=== PATIENT | female | born 1965 | race Caucasian/White ===

== ENCOUNTER 2018-10-05 16:21 | Outpatient (CLI) | payer OTHER ==
--- NOTE | 2018-10-06 07:59 | Ultrasound Report ---
Reason: POSTMENOPAUSAL BLEEDING Procedure Date: 10/05/2018 Accession Number: [id number] / [id number] Procedure: US - Pelvic w/Transvaginal CPT Code: FULL RESULT: EXAM: PELVIC ULTRASOUND EXAM DATE: 10/05/2018 05:30 PM. CLINICAL HISTORY: Postmenopausal bleeding for one day. Dyspareunia for 2 years. COMPARISON: None. TECHNIQUE: Realtime transabdominal pelvic scan performed to identify the uterus and adnexa and as an overview of other pelvic structures, followed by transvaginal scan to provide greater detail of the uterus and adnexa, with static image documentation. FINDINGS: Uterus: 6.5 x 3.2 x 5.8 cm, volume 63 cc. Anteverted position. Normal overall size and echotexture. Masses: 1. Anterior intramural fibroid 1.0 x 0.6 x 1.0 cm. 2. Left anterior intramural fibroid 0.6 x 0.5 x 0.7 cm. 3. Tiny fundal simple cyst measures 0.3 x 0.4 x 0.4 cm. Endometrium: 3 mm. Normal. Cervix: Unremarkable. Right Ovary: 1.7 x 1.5 x 1.5 cm, volume 2.0 cc. Normal echotexture and blood flow. Left Ovary: 2.4 x 1.6 x 2.5 cm, volume 5.0 cc. Normal echotexture and blood flow. Dominant follicle measures 0.6 cm. Free Fluid: None. Other: None. IMPRESSION: 1. Normal endometrium. No masses or thickening. 2. 2 small intramural fibroids measuring 0.7 and 1.0 cm. 3. Incidental fundal simple cyst. RADIA
== END 2018-10-05 16:22 | disposition home or self-care (01) ==
LOC: DI 16:21
PROVIDERS: ATTEND Obstetrics & Gynecology
DX: D25.1 Intramural leiomyoma of uterus (principal); N85.8 Other specified noninflammatory disorders of uterus
CPT/HCPCS: 76830; 76856

== ENCOUNTER 2018-10-06 11:58 | Day surgery (SDC) | payer OTHER ==
[2018-10-06] MEDS ORDERED: LIDOCAINE-MPF 2% 5 ML VIAL IM ONE (11:59)
[2018-10-06] MEDS ORDERED: fentaNYL 100 MCG/2 ML VIAL IVP ONE (11:59)
[2018-10-06] MEDS ORDERED: ROCURONIUM 50 MG/5 ML VIAL IVP ONE (11:59)
[2018-10-06] MEDS ORDERED: LABETALOL 5 MG/1 ML 20 ML MDV IV ONE (11:59)
[2018-10-06] MEDS ORDERED: PROPOFOL 200 MG/20 ML VIAL IVP ONE (11:59)
[2018-10-06] MEDS ORDERED: MIDAZOLAM 2 MG/2 ML VIAL IVP ONE (11:59)
[2018-10-06] MEDS ORDERED: DEXAMETHASONE 4 MG/ML VIAL IVP ONE (11:59)
[2018-10-06] MEDS ORDERED: LACTATED RINGERS 1,000 ML IV ONE ×2 (12:04→16:15)
[2018-10-06] MEDS ORDERED: CEFAZOLIN SODIUM IN 0.9 % NACL 2 GM/100 ML BAG IV ONE (12:23)
--- NOTE | 2018-10-06 13:35 | ANESTHESIA ---
Pre-Anesthesia VS, & Labs - Diagnosis symptomatic hemorrhoids and anal fissure - Procedure PPH and fissalectomy. Vital Signs: Temp Pulse Resp BP Pulse Ox 36.2 C L 61 12 166/93 H 95 10/06/18 12:04 10/06/18 12:04 10/06/18 12:04 10/06/18 12:04 10/06/18 12:04 Height 5 ft 5 in Weight (kg) 93.4 kg - NPO >8 hours - Is Patient ?: No Home Medications and Allergies Home Medications: Ambulatory Orders Calcium Citrate/Vitamin D3 [Calcium Citrate +Vit D3 Tablet] 4 each PO DAILY 10/02/18 Escitalopram Oxalate [Lexapro] 20 mg PO DAILY 10/02/18 Multivitamin [Daily Multiple Vitamin] 4 each PO DAILY 10/02/18 Ferrous Fumarate 324 mg PO DAILY 10/06/18 Calcium Citrate/Vitamin D3 [Calcium Citrate +Vit D3 Tablet] 4 each PO DAILY 10/02/18 Escitalopram Oxalate [Lexapro] 20 mg PO DAILY 10/02/18 Multivitamin [Daily Multiple Vitamin] 4 each PO DAILY 10/02/18 Ferrous Fumarate 324 mg PO DAILY 10/06/18 Allergies/Adverse Reactions: Allergies Allergy/AdvReac Type Severity Reaction Status Date / Time lanolin Allergy Rash Verified 10/02/18 13:32 Anes History & Medical History - Anesthetic History Anesthesia Complications: reports: Post-Operative Nausea/Vomiting (Reports severe PONV. She had TIVA with last procedure and did not vomit.) - Medical History Cardiovascular: reports: None Pulmonary: reports: Pneumonia (4 years ago), Other (frequent bronchitis during winter months.) Gastrointestinal: reports: Chronic diarrhea, Hemorrhoids, Other (Gastric bypass/sleeve) Urinary: reports: None Neuro: reports: None Musculoskeletal: reports: Other (S/P cervical spine surgery) Endocrine/Autoimmune: reports: Type 2 diabetes (resolved after gastric bypass) Blood Disorders: reports: None Skin: reports: None Smoking Status: Never smoker Psychosocial: reports: Depression, Anxiety - Surgical History General: Gastric surgery Eyes Ears Nose Throat (EENT): Other Gynecologic: section Orthopedic: Spine surgery, Other Exam General: Alert, Oriented x3, Cooperative, No acute distress Dental: WNL Mouth Openin Fingerbreadth Neck Mobility: Normal Mallampati classification: I Thyromental Distance: greater than 6 cm Respiratory: Lungs clear, Normal breath sounds, No respiratory distress, No accessory muscle use Cardiovascular: Regular rate, Normal S1, Normal S2, No murmurs Mental/Cognitive Status: Alert/Oriented X3, Normal for patient Plan Anesthesia Type: General, Total IV Consent for Procedure(s) Verified and Reviewed: Yes Code Status: Attempt Resuscitation ASA classification: 2-Mild systemic disease Is this case an emergency?: No
[2018-10-06] MEDS ORDERED: LIDOCAINE JELLY 2% 5 ML TUBE TOP ONE ×2 (15:24→16:28)
[2018-10-06] MEDS ORDERED: BUPIVACAINE 0.5%-EPI 1:200000 PF 30 ML VIAL ONE (15:25)
[2018-10-06] MEDS ORDERED: BUPIVACAINE 0.5%-EPI 1:200000 PF 30 ML VIAL SUBQ ONE ×2 (16:22)
[2018-10-06] MEDS ORDERED: HYDROmorphone 0.5 MG/0.5 ML SYRINGE IVP PRN (16:57)
[2018-10-06] MEDS ORDERED: HYDROcod/ACETAM 5/325 MG TABLET PO PRN (16:57)
[2018-10-06] MEDS ORDERED: ONDANSETRON 4 MG/2 ML VIAL IVP PRN (16:57)
[2018-10-06] MEDS ORDERED: SUGAMMADEX 200 MG/2 ML VIAL IVP ONE (16:59)
--- NOTE | 2018-10-06 17:05 | OPERATIVE REPORT ---
Operative Report - General Procedure Date: 10/06/18 Planned Procedure: Procedure for prolapsing hemorrhoids (stapled hemorrhoidectomy) and anal fissurectomy, possible excision of external hemorrhoids Pre-Op Diagnosis: Symptomatic hemorrhoids and anal fissure Procedure Performed: Procedure for prolapsing hemorrhoids (stapled hemorrhoidectomy) Post Op Diagnosis: Some anal stenosis along with internal hemorrhoids with a healing anal fiss - Procedure Note Primary Surgeon: Dwight Chase MD Anesthesia Provider: Isaias Alegria CRNA Anesthesia Technique: General ET tube, Local (30 mL of half percent Marcaine with epinephrine) IV Fluids (mL): 600 Estimated Blood Loss (mL): 10 Drain/Tube Type: Other (None.) Complications: None. - Other Other Information/Narrative: OPERATIVE DESCRIPTION/REPORT: After verbal and written informed consent was obtained detailing the risks of infection, bleeding requiring transfusion with its risks, nerve injury, and , and after I met with the patient confirming the surgery and the site of the surgery, the patient was brought to the operative suite and placed supine on the operating table. Great care was taken to avoid pressure points to prevent p ressure necrosis or nerve injury. Monitoring devices were applied along with TEDs and pneumatic compressive stockings (to prevent DVT). The patient received preoperative antibiotics for surgical prophylaxis. Isaias Alegria CRNA sedated and anesthetized the patient for the entire procedure. The patient was then placed prone in the shamar-knife position, again taking care to ensure that we prevented pressure point. The patients buttocks were taped apart and the patient was prepped and draped in the usual sterile manner. A "time in" then confirmed that the patient was identified with 3 identifiers (name, date and medical record number), the history and physical was in the chart, the signed consent confirming the procedure was in the chart, the patient was in the correct position, the aforementioned prophylactic measures were in place or given, we had the correct personnel and equipment to complete the procedure and that anesthesia, surgery and nursing were given an opportunity to express any concerns. With the agreement of everyone in the room, we proceeded with the operation. The PPH kit was obtained and opened. 0.5% Marcaine with epinephrine was used to inject the patient perianally prior to the digital rectal examination and prior to the operation. Digital rectal examination was done with the aid of water- soluble lubricant and some anal stenosis was noted. This was gently dilated up to 3 fingers to allow placement for the anal retractor and dilator. Examination revealed that the anal fissure had been healing and is obviously stated above the anal stenosis will certainly playing a role in the patient's symptoms. The anal retractor and dilator were placed in the patients anus after thoroughly lubricating them with a water-soluble lubricant. The retractor was held in place to the patients buttocks with 2 2-0 Nylon sutures. The dilator was removed and the tapered appliance was inserted. 4 cm was clearly marked on the appliance measuring from the dentate line. The dentate line was clearly protected behind the retractor. A 2-0 Prolene was then used to sew a purse- string at 4 cm from the dentate line using the tapered appliance as a guide and retractor. The purse string was completed through over 360 degrees to ensure that there were no skipped areas. The purse-string was tested by pulling on the two ends of the suture and feeling the purse-string contract against my finger. It was noted to be complete without any missed areas. The anvil was inserted past the purse-string feeling the ``pop as it passed it. The purse-string was then tied tight around the post and the ends of the suture brought up and tied through the orange hole in the anvil. The anvil was then inserted into the stapling device and the stapler was then screwed down tight. Digital vaginal examination revealed that the staple line did not include the vaginal mucosa. Four minutes were allowed to elapse to allow for emptying of the tissues of blood. The stapler was fired and removed from the anus. A complete ``donut was retrieved from around the post of the stapler, and this was sent in to pathology. Digital examination confirmed a circumferential stapling. Visual inspection confirmed some oozing at the 1 o'clock position that was controlled with packing and injection of additional 0.5% marcaine with epinephrine. A total of 30 mL of 0.5% Marcaine with epinephrine was used. Ultimately visual examination revealed hemostasis. There were some small skin tags externally that the patient stated were getting much smaller and did not wish to have taken off if I did not feel that they needed to. In this instance I opted not to remove them and as that would have caused her much more discomfort than the PPH stapling. A roll of gelfoam and lidocaine jelly was fashioned and inserted into the patients anus. The perianal area was injected with 30 mL of half percent Marcaine with epinephrine circumferentially. At this point a time out was pe rformed that confirmed that all the counts were correct, the procedure that was performed, the blood loss, the IV fluids administered, and the patients condition. Having tolerated the procedure well, the patient was subsequently taken to short stay in good and stable condition. CommScope disclaimer: This document was created in part using voice recognition technology. Because of the inherent limitations of the system ([employer]'s CommScope Dictate user manual states that the licensee understands that speech recognition is a statistical process and that recognition errors are inherent in the process), occasional same sounding word substitutions and grammatical errors do occur and persist despite proofreading. Please read this document for context.
[2018-10-06] MEDS ORDERED: ACETAMINOPHEN 1,000 MG/100 ML 100 ML IV ONE (17:19)
[2018-10-06 19:35] VITALS: BP 153/80
== END 2018-10-06 19:30 | disposition home or self-care (01) ==
LOC: SDS 11:58 → MS2 17:49 → SDS 19:30
PROVIDERS: ATTEND Surgery
PROC: 06BY0ZC Excision of Hemorrhoidal Plexus, Open Approach (ICD-10-PCS; principal; 2018-10-06 11:30)
DX: K64.8 Other hemorrhoids (principal); K60.2 Anal fissure, unspecified; K62.4 Stenosis of anus and rectum; K64.4 Residual hemorrhoidal skin tags; R00.0 Tachycardia, unspecified; E66.9 Obesity, unspecified; Z68.33 Body mass index [BMI] 33.0-33.9, adult; Z86.39 Personal history of other endocrine, nutritional and metabolic disease; Z98.84 Bariatric surgery status

== ENCOUNTER 2018-10-06 23:46 | Day surgery (SDC) | payer OTHER ==
--- NOTE | 2018-10-06 23:58 | ED Physician Documentation ---
History of Present Illness - Stated complaint Stated Complaint: POST SURGICAL BLEEDING - Additonal information Additional information: This is a 52-year-old female who underwent a hemorrhoidectomy today with Dr. Campbell, who presents due to continued bleeding from the site of her resection. She has been in touch with her surgeon, who asked for her to come back in so that he could examine the site and suture the area that is bleeding. She denies any pain, states that she is still numb from the previous analgesia. She denies any lightheadedness, weakness, chest pain. Review of Systems Constitutional: denies: Fever Cardiac: denies: Chest pain / pressure GI: denies: Abdominal Pain Skin: reports: Other (+ for bleeding from surgery site) PD PAST MEDICAL HISTORY - Past Medical History Cardiovascular: None Respiratory: Pneumonia (4 years ago), Other (frequent bronchitis during winter months.) Neuro: None Endocrine/Autoimmune: Type 2 diabetes (resolved after gastric bypass) GI: Chronic diarrhea, Hemorrhoids, Other (Gastric bypass/sleeve) : None HEENT: None Psych: Depression, Anxiety Musculoskeletal: Other (S/P cervical spine surgery) Derm: None - Past Surgical History General: Gastric surgery Ortho: Spine surgery, Other /[employer]: section HEENT: Other - Present Medications Home Medications: Ambulatory Orders Medication Instructions Recorded Confirmed Calcium Citrate/Vitamin D3 4 each PO DAILY 10/02/18 10/06/18 [Calcium Citrate +Vit D3 Tablet] Escitalopram Oxalate [Lexapro] 20 mg PO DAILY 10/02/18 10/06/18 Multivitamin [Daily Multiple 4 each PO DAILY 10/02/18 10/06/18 Vitamin] Docusate Sodium 250Mg Capsule 250 mg PO DAILY #10 capsule 10/06/18 [Colace 250Mg Capsule] HYDROcod/ACETAM 5/325 [[place] 5/325] 1 each PO Q4H #20 tablet 10/06/18 RX: Ferrous Fumarate 324 mg PO DAILY 10/06/18 10/06/18 - Allergies Allergies/Adverse Reactions: Allergies Allergy/AdvReac Type Severity Reaction Status Date / Time lanolin Allergy Rash Verified 10/02/18 13:32 - Social History Smoking Status: Never smoker PD ED PE NORMAL - Vitals Vital signs reviewed: Yes - General General: Alert and oriented X 3, No acute distress - HEENT HEENT: Atraumatic - Cardiac Cardiac: RRR, Other (2/6 systolic ejection murmur - I shared this with patient and told her to follow up with her PCP for recheck and possible echo) - Respiratory Respiratory: Clear bilaterally - Abdomen Abdomen: Soft, Non tender, Non distended - Derm Derm: Warm and dry - Neuro Neuro: Alert and oriented X 3 - Psych Psych: Normal mood, Normal affect Results - Vitals Vitals: Vital Signs - 24 hr 10/06/18 10/06/18 10/07/18 23:50 23:58 00:09 Temperature 36.3 C L 36.3 C L 36.3 C L Heart Rate 72 72 72 Heart Rate [ Brachial] Respiratory 18 18 18 Rate Blood Pressure 156/78 H 156/78 H 156/78 H Blood Pressure [Left Brachial artery] O2 Saturation 96 96 96 10/07/18 10/07/18 10/07/18 01:38 01:40 01:45 Temperature 36.8 C Heart Rate 87 87 85 Heart Rate [ Brachial] Respiratory 15 15 15 Rate Blood Pressure 134/79 H 127/69 117/64 Blood Pressure [Left Brachial artery] O2 Saturation 100 99 99 10/07/18 10/07/18 10/07/18 01:50 02:00 02:10 Temperature 36.7 C Heart Rate 90 92 77 Heart Rate [ Brachial] Respiratory 16 15 16 Rate Blood Pressure 114/69 149/88 H 137/77 H Blood Pressure [Left Brachial artery] O2 Saturation 95 95 100 10/07/18 10/07/18 10/07/18 02:30 03:03 03:29 Temperature 36.8 C 37 C 36.9 C Heart Rate 76 Heart Rate [ 79 78 Brachial] Respiratory 16 16 16 Rate Blood Pressure 139/72 H Blood Pressure 151/73 H 152/86 H [Left Brachial artery] O2 Saturation 95 94 93 10/07/18 10/07/18 10/07/18 04:00 04:30 04:35 Temperature 36.9 C Heart Rate 73 Heart Rate [ Brachial] Respiratory 16 Rate Blood Pressure 131/69 H Blood Pressure [Left Brachial artery] O2 Saturation 93 90 L 98 10/07/18 10/07/18 10/07/18 05:00 08:02 10:47 Temperature 37.1 C 36.5 C 36.6 C Heart Rate 86 72 71 Heart Rate [ Brachial] Respiratory 16 16 16 Rate Blood Pressure 133/84 H 140/73 H 143/78 H Blood Pressure [Left Brachial artery] O2 Saturation 96 99 94 10/07/18 12:46 Temperature 37 C Heart Rate 65 Heart Rate [ Brachial] Respiratory 16 Rate Blood Pressure 135/66 H Blood Pressure [Left Brachial artery] O2 Saturation 96 Oxygen O2 Source Room air - Labs Labs: Laboratory Tests 10/07/18 10/07/18 00:06 05:50 WBC 11.5 H 10.2 RBC 4.05 L 3.85 L Hgb 11.8 L 11.1 L Hct 36.6 L 34.9 L MCV 90.4 90.6 MCH 29.1 28.8 MCHC 32.2 31.8 L RDW 12.4 12.2 Plt Count 294 253 MPV 11.4 H 10.5 Neut # (Auto) 10.4 H 9.2 H Lymph # (Auto) 0.6 L 0.7 L [place] # (Auto) 0.4 0.2 Eos # (Auto) 0.0 0.0 Baso # (Auto) 0.0 0.0 Absolute Nucleated RBC 0.00 0.00 Nucleated RBC % 0.0 0.0 PD MEDICAL DECISION MAKING - ED course Complexity details: considered differential (Surgical complication, post- surgical bleeding, anemia) ED course: Patient presents with oozing from a hemmorhoidectomy site. She is well appearing with unremarkable vital signs. IV access obtained. She was met in ED by Dr. Chase, who arranged for transfer to the OR for evaluation of the wound and likely suture placement. She has a mild anemia on her CBC. Patient was well appearing at the time of transfer to the OR Departure - Departure Disposition: ED Transfer to [facility] Clinical Impression: Postoperative bleeding from incision Condition: Stable Discharge Date/Time: 10/07/18 00:40
--- NOTE | 2018-10-07 00:06 | SURGERY HX AND PHYSICAL(T) ---
Surgical History & Physical - Chief Complaint/HPI Chief Complaint: Blood per rectum following a PPH hemorrhoidectomy History of Present Illness: The patient is a very pleasant 52-year-old female well-known to me as I performed a PPH hemorrhoidectomy on her approximately 8 hours ago. At the time of the operation she had some oozing from the staple line which was controlled with the application of Marcaine with epinephrine and a Gelfoam. She was discharged home and was doing well until she passed a cereal bowl sized clot. She is not dizzy. She is not lightheaded. - PMH/PSH/Social Hx Does the pt have a hx of MRSA?: No Neurological History: None Eyes, Ears, Nose, Throat: None Cardiovascular: None Respiratory: Pneumonia (4 years ago), Other (frequent bronchitis during winter months.) Skin: None Endocrine/Autoimmune: Type 2 diabetes (resolved after gastric bypass) Gastrointestinal: Chronic diarrhea, Hemorrhoids, Other (Gastric bypass/sleeve) Urinary: None Musculoskeletal: Other (S/P cervical spine surgery) Blood Disorders: None Psychiatric: Depression, Anxiety General: Gastric surgery Orthopedic: Spine surgery, Other Eyes Ears Nose Throat (EENT): Other Smoking Status: Never smoker - Home Meds and Allergies Home Medications: Calcium Citrate/Vitamin D3 [Calcium Citrate +Vit D3 Tablet] 4 each PO DAILY 10/02/18 Escitalopram Oxalate [Lexapro] 20 mg PO DAILY 10/02/18 Multivitamin [Daily Multiple Vitamin] 4 each PO DAILY 10/02/18 Ferrous Fumarate 324 mg PO DAILY 10/06/18 Allergies/Adverse Reactions: Allergies Allergy/AdvReac Type Severity Reaction Status Date / Time lanolin Allergy Rash Verified 10/02/18 13:32 - Review of Systems Constitutional: No: Fatigue HEENT: No: Headaches Skin: No: Cyanosis, Jaundice Cardiac: No: AFIB, CAD, CHF Respiratory: No: Shortness of breath Gastrointestinal: Hematochechezia. No: Nausea, Vomiting Gentinourinary: No: Dysuria Neurological: No: Dizziness, Headache Musculoskeletal: No: Muscle pain, Back pain - Vital Signs Heart Rate: 72 Blood Pressure: 156/78 Temperature: 36.3 C Respiratory Rate: 18 O2 Saturation: 96 Weight (kg): 92.533 kg Height: 1.65 m - Physical Exam General Appearance: positive: No acute distress Eyes Bilatera: positive: No lid inflammation, Conjunctivae nml, No scleral icterus ENT: positive: No signs of dehydration Neck: positive: Trachea midline Respiratory: positive: Chest non-tender Cardiovascular: positive: Regular rate & rhythm Abdomen: positive: Non-tender, Nml bowel sounds Neurologic/Psychiatric: positive: Oriented x3, Motor nml, Sensation nml, Mood/affect nml - Patient Review Patient Review: Problems were reviewed with the patient during this visit. Medications were reviewed with the patient during this visit. Allergies were reviewed this patient during this visit. Pertinent Tests Reviewed: All pertitent test for this patient were reviewed. - Assessment & Plan Assessment and Plan: The assessment is blood per rectum following a PPH hemorrhoidectomy. The plan is to take her back to the operating room, anesthetized her, and examined her under anesthesia to ensure that this previous site that had been oozing is not frankly bleeding. If it is bleeding then will be controlled using the application of a 2-0 Vicryl suture. The remainder of the staple line will be reexamined as well. The patient will receive tranexamic acid to help with hemostasis. Following these hemostatic measures I would like to keep the patient until the morning to ensure that there is no recurrence of the bleeding prior to sending her home. Additional antibiotics are not necessary but additional numbing medication will be used. All of this was discussed with the patient and her daughter. They are in agreement. Verbal and written consent was obtained. 30 minutes of [id number] time was spent with the patient, almost all in explanation and discussion, coordination of their care and completion of the requisite paperwork Dragon disclaimer: This document was created in part using voice recognition technology. Because of the inherent limitations of the system ([employer] Dictate user manual states that the licensee understands that speech recognition is a statistical process and that recognition errors are inherent in the process), occasional same sounding word substitutions and grammatical errors do occur and persist despite proofreading. Please read this document for context.
[2018-10-07] MEDS ORDERED: fentaNYL 100 MCG/2 ML VIAL IVP ONE (00:20)
[2018-10-07] MEDS ORDERED: SUCCINYLCHOLINE 200 MG/10 ML VIAL IVP ONE (00:20)
[2018-10-07] MEDS ORDERED: SEVOFLURANE 250 ML LIQUID INH ONE (00:20)
[2018-10-07] MEDS ORDERED: ONDANSETRON 4 MG/2 ML VIAL IVP ONE (00:20)
[2018-10-07] MEDS ORDERED: PROPOFOL 200 MG/20 ML VIAL IVP ONE (00:20)
[2018-10-07] MEDS ORDERED: DEXAMETHASONE 4 MG/ML VIAL IVP ONE (00:20)
[2018-10-07] MEDS ORDERED: TRANEXAMIC ACID 1,000 MG/10 ML VIAL IV ONE (00:20)
--- NOTE | 2018-10-07 00:28 | ANESTHESIA ---
Pre-Anesthesia VS, & Labs - Diagnosis Rectal bleeding. s/p hemorrhoidectomy - Procedure EUA, ligation of bleeding s/p hemorrhoidectomy Vital Signs: Temp Pulse Resp BP Pulse Ox 36.3 C L 72 18 156/78 H 96 10/07/18 00:09 10/07/18 00:09 10/07/18 00:09 10/07/18 00:09 10/07/18 00:09 Height 5 ft 5 in Weight (kg) 92.533 kg Body Mass Index 33.9 - NPO Last Food Intake: 1999 - Is Patient ?: No Home Medications and Allergies Calcium Citrate/Vitamin D3 [Calcium Citrate +Vit D3 Tablet] 4 each PO DAILY 10/02/18 Escitalopram Oxalate [Lexapro] 20 mg PO DAILY 10/02/18 Multivitamin [Daily Multiple Vitamin] 4 each PO DAILY 10/02/18 Ferrous Fumarate 324 mg PO DAILY 10/06/18 Allergies/Adverse Reactions: Allergies Allergy/AdvReac Type Severity Reaction Status Date / Time lanolin Allergy Rash Verified 10/02/18 13:32 Anes History & Medical History - Anesthetic History Anesthesia Complications: reports: Post-Operative Nausea/Vomiting - Medical History Cardiovascular: reports: None Pulmonary: reports: Pneumonia (4 years ago), Other (frequent bronchitis during winter months.) Gastrointestinal: reports: Chronic diarrhea, Hemorrhoids, Other (Gastric bypass/sleeve) Urinary: reports: None Neuro: reports: None Musculoskeletal: reports: Other (S/P cervical spine surgery) Endocrine/Autoimmune: reports: Type 2 diabetes (resolved after gastric bypass) Blood Disorders: reports: None Skin: reports: None Smoking Status: Never smoker - Surgical History General: Gastric surgery, Other (hemorrhoidectomy 10/06/18) Eyes Ears Nose Throat (EENT): Other Gynecologic: section Orthopedic: Spine surgery, Other Exam General: Alert, Oriented x3, Cooperative, No acute distress Dental: WNL Mouth Openin Fingerbreadth Neck Mobility: Normal Mallampati classification: II Thyromental Distance: greater than 6 cm Respiratory: Lungs clear, Normal breath sounds, No respiratory distress, No accessory muscle use Cardiovascular: Regular rate, Normal S1, Normal S2, No murmurs Mental/Cognitive Status: Alert/Oriented X3, Normal for patient Plan Anesthesia Type: General Consent for Procedure(s) Verified and Reviewed: Yes Code Status: Attempt Resuscitation ASA classification: 2-Mild systemic disease Is this case an emergency?: Yes
[2018-10-07] MEDS ORDERED: LIDOCAINE JELLY 2% 5 ML TUBE TOP ONE ×2 (00:31→01:12)
[2018-10-07] MEDS ORDERED: BUPIVACAINE 0.5%-EPI 1:200000 PF 30 ML VIAL ONE (00:32)
[2018-10-07 00:34] LABS: BASOPHILS % (AUTO) 0.2 %; HGB - HEMOGLOBIN 11.8 g/dL (12.0-16.0); LYMPHOCYTES # (AUTO) 0.6 10^3/uL (1.5-3.5); MEAN CORPUSCULAR HEMOGLOBIN 29.1 pg (27.0-31.0); MEAN CORPUSCULAR HGB CONC 32.2 g/dL (32.0-36.0); MEAN CORPUSCULAR VOLUME 90.4 fL (81.0-99.0); MEAN PLATELET VOLUME 11.4 fL (7.9-10.8); MONOCYTES # (AUTO) 0.4 10^3/uL (0.0-1.0); MONOCYTES % (AUTO) 3.5 %; NEUTROPHILS # (AUTO) 10.4 10^3/uL (1.5-6.6); NEUTROPHILS % (AUTO) 90.9 %; PLT - PLATELET COUNT 294 10^3/uL (130-450); RED BLOOD COUNT 4.05 10^6/uL (4.20-5.40); RED CELL DISTRIBUTION WIDTH 12.4 % (12.0-15.0); WHITE BLOOD COUNT 11.5 x10^3/uL (4.8-10.8)
[2018-10-07] MEDS ORDERED: LACTATED RINGERS 1,000 ML IV ONE (00:42)
[2018-10-07] MEDS ORDERED: BUPIVACAINE 0.5%-EPI 1:200000 PF 30 ML VIAL SUBQ ONE (01:12)
[2018-10-07] MEDS ORDERED: HYDROcod/ACETAM 5/325 MG TABLET PO PRN (01:42)
[2018-10-07] MEDS ORDERED: HYDROmorphone 0.5 MG/0.5 ML SYRINGE IVP PRN (01:42)
[2018-10-07] MEDS ORDERED: ONDANSETRON 4 MG/2 ML VIAL IVP PRN (01:42)
--- NOTE | 2018-10-07 01:51 | OPERATIVE REPORT ---
Operative Report - General Procedure Date: 10/07/18 Planned Procedure: Exam under anesthesia for hemostasis Pre-Op Diagnosis: Blood per rectum following a PPH hemorrhoidectomy Procedure Performed: Exam under anesthesia and hemostatic maneuvers Post Op Diagnosis: Same - Procedure Note Primary Surgeon: Dwight Chase MD Anesthesia Provider: Isaias Alegria CRNA Anesthesia Technique: General LMA, Local (30 mL of half percent Marcaine with epinephrine) IV Fluids (mL): 800 Estimated Blood Loss (mL): 10 Findings: No active bleeding. Very little blood in the rectal vault. Complications: None. - Other Other Information/Narrative: OPERATIVE DESCRIPTION/REPORT: After verbal and written informed consent was obtained detailing the risks of infection, bleeding requiring transfusion with its risks, nerve injury, and , and after I met with the patient confirming the surgery and the site of the surgery, the patient was brought to the operative suite and placed supine on the operating table. Great care was taken to avoid pressure points to prevent pressure necrosis or nerve injury. Monitoring devices were applied along with TEDs and pneumatic compressive stockings (to prevent DVT). The patient received preoperative antibiotics for surgical prophylaxis. Isaias Alegria CRNA sedated and anesthetized the patient for the entire procedure. The patient was then placed in lithotomy position. The patient was prepped and draped in the usual sterile manner. A "time in" then confirmed that the patient was identified with 3 identifiers (name, date and medical record number), the history and physical was in the chart, the signed consent confirming the procedure was in the chart, the patient was in the correct position, the aforementioned prophylactic measures were in place or given, we had the correct personnel and equipment to complete the procedure and that anesthesia, surgery and nursing were given an opportunity to express any concerns. With the agreement of every one in the room, we proceeded with the operation. The bivalve anal retractor was placed in the patients anus after thoroughly lubricating it with a water-soluble lubricant. Examination revealed very little blood in the rectal vault and the entire staple line was examined for any bleeding and there was none seen. The previous Gelfoam roll was not found in the patient's rectum. A 2-0 Vicryl [id number] suture was placed at the staple line where there was some oozing during the operation but again there was no active bleeding or oozing at this time. I examined and reexamined with the patient both with the bivalve anal retractor in place and digitally to see whether or not I could get the staple line or residual hemorrhoidal tissue to bleed but I could not get either the staple line or residual hemorrhoidal tissue to bleed. Similar to yesterday's operation, this area was injected using half percent Marcaine with epinephrine for additional hemostatic contribution. The perianal area was injected using half percent Marcaine with epinephrine for long-term pain control. A roll of gelfoam and 2% lidocaine jelly was fashioned and inserted into the patients anus. The entire anal area was re-injected with % marcaine to try to ensure long-term pain control. At this point a time out was performed that confirmed that all the counts were correct, the procedure that was performed, the blood loss, the IV fluids administered, and the patients condition. Having tolerated the procedure well, the patient was subsequently extubated and taken to recovery room in good and stable condition. [employer] disclaimer: This document was created in part using voice recognition technology. Because of the inherent limitations of the system ([employer]'s [employer] D[employer] user manual states that the licensee understands that speech recognition is a statistical process and that recognition errors are inherent in the process), occasional same sounding word substitutions and grammatical errors do occur and persist despite proofreading. Please read this document for context.
[2018-10-07] MEDS ORDERED: KETOROLAC 30 MG/ML VIAL ONE (02:07)
[2018-10-07] MEDS ORDERED: SODIUM CHLORIDE FLUSH 0.9% 10 ML SYRINGE ONE (02:52)
[2018-10-07] MEDS: BENZOCAINE/MENTHOL LOZENGE MM PRN ×3 (02:57→08:33)
[2018-10-07 06:00] LABS: BASOPHILS % (AUTO) 0.2 %; HGB - HEMOGLOBIN 11.1 g/dL (12.0-16.0); LYMPHOCYTES # (AUTO) 0.7 10^3/uL (1.5-3.5); LYMPHOCYTES % (AUTO) 7.2 %; MEAN CORPUSCULAR HEMOGLOBIN 28.8 pg (27.0-31.0); MEAN CORPUSCULAR HGB CONC 31.8 g/dL (32.0-36.0); MEAN CORPUSCULAR VOLUME 90.6 fL (81.0-99.0); MEAN PLATELET VOLUME 10.5 fL (7.9-10.8); MONOCYTES # (AUTO) 0.2 10^3/uL (0.0-1.0); MONOCYTES % (AUTO) 1.7 %; NEUTROPHILS # (AUTO) 9.2 10^3/uL (1.5-6.6); NEUTROPHILS % (AUTO) 90.3 %; PLT - PLATELET COUNT 253 10^3/uL (130-450); RED BLOOD COUNT 3.85 10^6/uL (4.20-5.40); RED CELL DISTRIBUTION WIDTH 12.2 % (12.0-15.0); WHITE BLOOD COUNT 10.2 x10^3/uL (4.8-10.8)
--- NOTE | 2018-10-07 12:02 | PROVIDER PROGRESS NOTE ---
Subjective - General Procedure Date: 10/06/18 Post Op Days: 1 Procedure Performed: PPH followed by exam under anesthesia for rectal bleeding - Review of Systems General: positive: No symptoms HEENT: positive: No symptoms Pulmonary: positive: No symptoms Cardiovascular: positive: No symptoms Gastrointestinal: positive: No symptoms Genitourinary: positive: No symptoms Musculoskeletal: positive: No symptoms Skin: positive: No symptoms Psychiatric: positive: No symptoms Objective - Patient Data Reviewed Vital Signs: Yes Vital Signs: Vital Signs x48h Temp Pulse Resp BP Pulse Ox 10/07/18 10:47 36.6 C 71 16 143/78 H 94 10/07/18 08:02 36.5 C 72 16 140/73 H 99 10/07/18 05:00 37.1 C 86 16 133/84 H 96 10/07/18 04:35 98 10/07/18 04:30 90 L 10/07/18 04:00 36.9 C 73 16 131/69 H 93 Weight: Weight 10/05/18 10/06/18 10/07/18 23:59 23:59 23:59 Weight (kg) 92.533 kg 92.533 kg - Lab Results Lab Results: 10/07/18 05:50 Other Lab Results: Lab Results x24hrs 10/07/18 10/07/18 Range/Units 05:50 00:06 WBC 10.2 11.5 H (4.8-10.8) x10^3/uL RBC 3.85 L 4.05 L (4.20-5.40) 10^6/uL Hgb 11.1 L 11.8 L (12.0-16.0) g/dL Hct 34.9 L 36.6 L (37.0-47.0) % MCV 90.6 90.4 (81.0-99.0) fL MCH 28.8 29.1 (27.0-31.0) pg MCHC 31.8 L 32.2 (32.0-36.0) g/dL RDW 12.2 12.4 (12.0-15.0) % Plt Count 253 294 (130-450) 10^3/uL MPV 10.5 11.4 H (7.9-10.8) fL Neut # (Auto) 9.2 H 10.4 H (1.5-6.6) 10^3/uL Lymph # (Auto) 0.7 L 0.6 L (1.5-3.5) 10^3/uL [place] # (Auto) 0.2 0.4 (0.0-1.0) 10^3/uL Eos # (Auto) 0.0 0.0 (0.0-0.7) 10^3/uL Baso # (Auto) 0.0 0.0 (0.0-0.1) 10^3/uL Absolute Nucleated RBC 0.00 0.00 x10^3/uL Nucleated RBC % 0.0 0.0 /100WBC - Current Medications Current Medications: Current Medications Generic Name Dose Route Start Last Admin Trade Name Freq PRN Reason Stop Dose Admin Throat Lozenges 1 lozenge 10/07/18 02:37 10/07/18 08:33 Cepacol MM 1 lozenge Q2HR PRN Administration Throat pain ABX Reporting Has patient been on IV antibiotics over the past 48 hours?: Yes Impression/Plan - Problem List Problem List: D1 s/p hemorrhoidectomy (PPH) with reoperation for bleeding and no bleeding site identified Patient is doing well without any bleeding and no pain. Okay to discharge home and follow up with us in 10-14 days. Patient instructed to make sure that she keeps her stools soft. Contact us with any questions or concerns. No additional prescriptions needed.
[2018-10-07 12:47] VITALS: BP 135/66
== END 2018-10-07 13:00 | disposition home or self-care (01) ==
LOC: ED 23:46 → SDS 23:47 → MS2 10-07 02:19 → SDS 10-07 13:00
PROVIDERS: ATTEND Surgery
PROC: 0WJP7ZZ Inspection of Gastrointestinal Tract, Via Natural or Artificial Opening Approach (ICD-10-PCS; principal; 2018-10-07 00:45)
DX: K91.840 Postprocedural hemorrhage of a digestive system organ or structure following a digestive system procedure (principal); Y83.8 Other surgical procedures as the cause of abnormal reaction of the patient, or of later complication, without mention of misadventure at the time of the procedure; R01.1 Cardiac murmur, unspecified; D64.9 Anemia, unspecified; K64.8 Other hemorrhoids; K60.2 Anal fissure, unspecified; K62.4 Stenosis of anus and rectum; K64.4 Residual hemorrhoidal skin tags; R00.0 Tachycardia, unspecified; E66.9 Obesity, unspecified; Z68.33 Body mass index [BMI] 33.0-33.9, adult; Z86.39 Personal history of other endocrine, nutritional and metabolic disease; Z98.84 Bariatric surgery status
CPT/HCPCS: 36415; 45990; 46947; 85025; A9270; J0131; J0330; J0690; J1170; J3490; J7120

== ENCOUNTER 2018-10-24 15:24 | Outpatient (CLI) | payer OTHER ==
[2018-10-24 17:40] LABS: ALBUMIN 3.9 g/dL (3.2-5.5); ALBUMIN/GLOBULIN RATIO 1.1 (1.0-2.2); ALKALINE PHOSPHATASE 91 IU/L (42-121); ALT ALANINE AMINOTRANSFERASE 18 IU/L (10-60); AST ASPARTATE AMINOTRANSFERASE 22 IU/L (10-42); BILIRUBIN,TOTAL 0.6 mg/dL (0.2-1.0); BUN - BLOOD UREA NITROGEN 12 mg/dL (6-20); CALCIUM 9.4 mg/dL (8.5-10.3); CARBON DIOXIDE - CO2 28 mmol/L (21-32); CHLORIDE 105 mmol/L (101-111); CHOL/HDL RATIO 2.7 (<4.4); CHOLESTEROL 117 mg/dL; CREATININE 0.5 mg/dL (0.4-1.0); GFR - MDRD 129 (>89); GLUCOSE 96 mg/dL (70-100); HDL CHOLESTEROL 43 mg/dL; LDL CHOLESTEROL,CALCULATED 65 mg/dL; LDL/HDL RATIO 1.5 (<4.4); SODIUM 143 mmol/L (135-145); TOTAL PROTEIN 7.3 g/dL (6.7-8.2); VLDL CHOLESTEROL 9 mg/dL
[2018-10-24 18:48] LABS: BASOPHILS # (AUTO) 0.1 10^3/uL (0.0-0.1); BASOPHILS % (AUTO) 0.7 %; EOSINOPHILS # (AUTO) 0.6 10^3/uL (0.0-0.7); EOSINOPHILS % (AUTO) 5.2 %; HGB - HEMOGLOBIN 13.2 g/dL (12.0-16.0); LYMPHOCYTES # (AUTO) 2.8 10^3/uL (1.5-3.5); MEAN CORPUSCULAR HEMOGLOBIN 28.8 pg (27.0-31.0); MEAN CORPUSCULAR HGB CONC 32.2 g/dL (32.0-36.0); MEAN CORPUSCULAR VOLUME 89.5 fL (81.0-99.0); MEAN PLATELET VOLUME 11.2 fL (7.9-10.8); MONOCYTES # (AUTO) 0.8 10^3/uL (0.0-1.0); NEUTROPHILS # (AUTO) 6.6 10^3/uL (1.5-6.6); NEUTROPHILS % (AUTO) 60.5 %; PLT - PLATELET COUNT 386 10^3/uL (130-450); RED BLOOD COUNT 4.58 10^6/uL (4.20-5.40); RED CELL DISTRIBUTION WIDTH 12.7 % (12.0-15.0); WHITE BLOOD COUNT 10.9 x10^3/uL (4.8-10.8)
[2018-10-24 19:50] LABS: HB2 TOTAL 13.6 g/dL; HEMOGLOBIN A1C 0.42 g/dL
== END 2018-10-24 15:25 | disposition home or self-care (01) ==
LOC: LAB.S 15:24
PROVIDERS: ATTEND Registered Nurse
DX: Z78.0 Asymptomatic menopausal state (principal); F41.8 Other specified anxiety disorders
CPT/HCPCS: 36415; 80053; 80061; 83036; 83721; 84443; 85025

== ENCOUNTER 2019-02-15 22:43 | Emergency (ER) | payer OTHER ==
--- NOTE | 2019-02-15 23:38 | ED Physician Documentation ---
PD HPI TRUNK INJURY - Stated complaint Stated Complaint: FELL INTO TRUCK BED/RIB PX - Chief complaint Chief Complaint: Trauma Ch/Bk - History obtained from History obtained from: Patient - History of Present Illness Location: Anterior chest (anterolateral), Left chest Type of injury: Fall Timing - onset: How many days ago (10) Timing - duration: Days (10) Pain level now: 6 Quality: Pain Improved by: Rest Worsened by: Moving, Palpating Contributing factors: No: Anticoagulated Similar symptoms before: Has not had sx before Recently seen: Not recently seen - Additional information Additional information: fell 10 days ago, struck right lower chest wall against flatbed part of truck, c/o right anterolateral chest pain that was mild but became rapidly worse over past 3 days and now radiating to LLQ of abdomen. Review of Systems Constitutional: reports: Reviewed and negative Cardiac: reports: Chest pain / pressure. 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 HEENT: Other - Present Medications Home Medications: Ambulatory Orders Medication Instructions Recorded Confirmed Multivitamin [Daily Multiple 4 each PO DAILY 10/02/18 02/15/19 Vitamin] Ferrous Fumarate 324 mg PO DAILY 10/06/18 02/15/19 Oxycodone HCl/Acetaminophen 1 - 2 each PO Q6H PRN #14 tablet 02/16/19 [Percocet 5-325 mg Tablet] - Allergies Allergies/Adverse Reactions: Allergies Allergy/AdvReac Type Severity Reaction Status Date / Time lanolin Allergy Rash Verified 02/15/19 22:55 - Social History Does the pt smoke?: No Smoking Status: Never smoker Does the pt drink ETOH?: Yes Does the pt have substance abuse?: No - Immunizations Immunizations are current?: Yes - POLST Patient has POLST: No PD ED PE NORMAL - Vitals Vital signs reviewed: Yes - General General: Alert and oriented X 3, No acute distress, Well developed/nourished - Cardiac Cardiac: RRR, No murmur - Respiratory Respiratory: No respiratory distress, Clear bilaterally - Abdomen Abdomen: Soft, Other (LUQ TTP) - Back Back: No CVA TTP, No spinal TTP - Derm Derm: Normal color, Warm and dry - Extremities Extremities: No edema Results - Vitals Vitals: Oxygen O2 Source Room air - Labs Labs: Laboratory Tests 02/15/19 02/15/19 23:59 23:59 WBC 11.4 H RBC 4.13 L Hgb 11.8 L Hct 37.4 MCV 90.6 MCH 28.6 MCHC 31.6 L RDW 12.7 Plt Count 320 MPV 10.6 Neut # (Auto) 6.3 Lymph # (Auto) 3.3 [place] # (Auto) 0.7 Eos # (Auto) 0.9 H Baso # (Auto) 0.1 Absolute Nucleated RBC 0.00 Nucleated RBC % 0.0 Sodium 140 Potassium 4.5 Chloride 105 Carbon Dioxide 27 Anion Gap 8.0 BUN 17 Creatinine 0.8 Estimated GFR (MDRD) 75 L Glucose 108 H Calcium 8.6 - Rads (name of study) CT A/P Radiology: Prelim report reviewed, See rad report PD MEDICAL DECISION MAKING - ED course Complexity details: reviewed results, re-evaluated patient, considered differential, d/w patient Departure - Departure Disposition: 01 Home, Self Care Clinical Impression: Chest wall contusion Condition: Good Instructions: ED Contusion Chest Wall Follow-Up: Morelia Villarreal ARNP [Primary Care Provider] - Prescriptions: Oxycodone HCl/Acetaminophen [Percocet 5-325 mg Tablet] 1 - 2 each PO Q6H PRN #14 tablet PRN Reason: pain Discharge Date/Time: 02/16/19 02:22
[2019-02-16] MEDS ORDERED: IOVERSOL 320 100 ML VIAL IVP ONE ×2 (00:01→00:48)
[2019-02-16] MEDS ORDERED: MORPHINE 2 MG/ML CARPUJECT IVP STA (00:07)
[2019-02-16 00:10] LABS: BASOPHILS # (AUTO) 0.1 10^3/uL (0.0-0.1); BASOPHILS % (AUTO) 0.8 %; EOSINOPHILS # (AUTO) 0.9 10^3/uL (0.0-0.7); HGB - HEMOGLOBIN 11.8 g/dL (12.0-16.0); LYMPHOCYTES # (AUTO) 3.3 10^3/uL (1.5-3.5); MEAN CORPUSCULAR HEMOGLOBIN 28.6 pg (27.0-31.0); MEAN CORPUSCULAR HGB CONC 31.6 g/dL (32.0-36.0); MEAN CORPUSCULAR VOLUME 90.6 fL (81.0-99.0); MEAN PLATELET VOLUME 10.6 fL (7.9-10.8); MONOCYTES # (AUTO) 0.7 10^3/uL (0.0-1.0); MONOCYTES % (AUTO) 5.8 %; NEUTROPHILS # (AUTO) 6.3 10^3/uL (1.5-6.6); NEUTROPHILS % (AUTO) 55.9 %; PLT - PLATELET COUNT 320 10^3/uL (130-450); RED BLOOD COUNT 4.13 10^6/uL (4.20-5.40); RED CELL DISTRIBUTION WIDTH 12.7 % (12.0-15.0); WHITE BLOOD COUNT 11.4 x10^3/uL (4.8-10.8)
[2019-02-16 00:21] LABS: CALCIUM 8.6 mg/dL (8.5-10.3); CREATININE 0.8 mg/dL (0.4-1.0)
--- NOTE | 2019-02-16 01:13 | CT Report ---
Reason: LUQ pain, recent injury Procedure Date: 02/16/2019 Accession Number: [id number] / [id number] Procedure: CT - Abdomen/Pelvis W CPT Code: Final Report FULL RESULT: EXAM: CT ABDOMEN AND PELVIS EXAM DATE: 02/16/2019 12:49 AM. CLINICAL HISTORY: Left-sided pain. Recent injury. COMPARISONS: None. TECHNIQUE: Routine helical CT imaging was performed through the abdomen and pelvis. IV contrast: OPTI 320 100ML. Enteric contrast: No. Reconstructions: Coronal and sagittal. In accordance with CT protocol optimization, one or more of the following dose reduction techniques were utilized for this exam: automated exposure control, adjustment of mA and/or KV based on patient size, or use of iterative reconstructive technique. FINDINGS: Lung Bases: Unremarkable. Liver: Possible fatty infiltration. Gallbladder/Bile Ducts: Status post cholecystectomy. Spleen: Normal. Pancreas: Normal. Adrenal Glands: Normal. Kidneys: Right renal cyst measuring 2.3 cm. No masses or hydronephrosis. Peritoneal Cavity/Bowel: Prior gastric surgery. Postoperative changes in the rectum. No bowel obstruction seen. No free air or free fluid. No diverticulitis. Moderate stool in the colon. No lymphadenopathy seen. Appendix appears normal. Pelvic Organs: Normal. The bladder and visualized pelvic organs are within normal limits. Vasculature: No aneurysms or other significant abnormality. Bones: No significant abnormality. Other: None. IMPRESSION: 1. No acute posttraumatic findings are seen in the abdomen or pelvis. 2. Postoperative changes. No acute inflammatory or obstructive process seen. 3. Possible fatty liver. RADIA
[2019-02-16] MEDS ORDERED: oxyCODONE 5 MG TABLET PO STA (02:09)
[2019-02-16 02:22] VITALS: BP 136/85
== END 2019-02-16 02:22 | disposition home or self-care (01) ==
LOC: ED 22:43
DX: S20.212A Contusion of left front wall of thorax, initial encounter (principal); W18.39XA Other fall on same level, initial encounter; Y93.89 Activity, other specified; Y92.812 Truck as the place of occurrence of the external cause; E11.9 Type 2 diabetes mellitus without complications
CPT/HCPCS: 36415; 74177; 80048; 85025; 96374; 99284; A9270; Q9967

== ENCOUNTER 2019-10-23 10:34 | Outpatient (CLI) | payer OTHER ==
--- NOTE | 2019-10-23 15:54 | DEXA Report ---
PROCEDURE: Dexa Spine and/or Hip INDICATIONS: POSTMENOPAUSAL TECHNIQUE: Dual energy x-ray absorptiometry (DXA) was performed on a [employer] System. Regions measur ed are the AP Spine, femoral neck, and if needed forearm. COMPARISON: None. FINDINGS: Lumbar Spine: Bone Mineral Density 0.932 g/cm/cm,T score -2.1, osteopenia Left Hip: Bone Mineral Density 0.707 g/cm/cm,T score -2.4, osteopenia Left Femoral Neck: Bone Mineral Density 0.735 g/cm/cm, T score -2.2, osteopenia (T score greater or equal to -1.0: NORMAL) (T score from -1.1 to -2.4: OSTEOPENIA) (T score less than or equal to -2.5 to: OSTEOPOROSIS) Impression: Symmetric osteopenia involving the lumbosacral spine, left hip region and the left femora l neck. Patients with diagnosis of osteoporosis or osteopenia should have regular bone mineral density assess ment. For those eligible for Medicare, routine testing is allowed once every 2 years. Testing frequ ency can be increased for patients who have rapidly progressing disease or for those who are receivin g medical therapy to restore bone mass. Reviewed by: David Rodriguez MD on 10/23/2019 3:52 PM PDT Approved by: David Rodriguez MD on 10/23/2019 3:52 PM PDT Station ID: [id number]
== END 2019-10-23 10:35 | disposition home or self-care (01) ==
LOC: DI 10:34
PROVIDERS: ATTEND Family Medicine
DX: M85.89 Other specified disorders of bone density and structure, multiple sites (principal); Z78.0 Asymptomatic menopausal state
CPT/HCPCS: 36415; 77080; 82306

== ENCOUNTER 2019-12-24 19:17 | Emergency (ER) | payer OTHER ==
[2019-12-24] MEDS ORDERED: HYDROcod/ACETAM 5/325 MG TABLET PO STA (19:41)
--- NOTE | 2019-12-24 19:43 | ED Physician Documentation ---
History of Present Illness - Stated complaint Stated Complaint: LEFT ARM INJURY - Chief complaint Chief Complaint: General - History obtained from History obtained from: Patient - Additonal information Additional information: 54-year-old woman with history of injury to the left arm, she had a hamate ectomy and then an ulnar shortening with abnormal fracture and plates in place as well as multiple tendon injuries and repairs. Trip and fall onto outstretched left hand tonight and has pain at both the wrist and elbow which is severe. No other injuries. 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 HEENT: Other - Present Medications Home Medications: Ambulatory Orders Medication Instructions Recorded Confirmed Hydrocodone/Acetaminophen 1 - 2 tab PO Q6H PRN #15 tablet 12/24/19 [Hydrocodone-Acetamin 5-325 mg] - Allergies Allergies/Adverse Reactions: Allergies Allergy/AdvReac Type Severity Reaction Status Date / Time lanolin Allergy Rash Verified 12/24/19 19:32 - Social History Does the pt smoke?: No Smoking Status: Never smoker Does the pt drink ETOH?: Yes Does the pt have substance abuse?: No - Immunizations Immunizations are current?: Yes - POLST Patient has POLST: No PD ED PE NORMAL - Vitals Vital signs reviewed: Yes - General General: Alert and oriented X 3, No acute distress - HEENT HEENT: PERRL, EOMI - Neck Neck: Supple, no meningeal sign, No bony TTP - Extremities Extremities: Other (She is tender over the radial head on the left, she can bend the elbow okay but hurts to extend it. She is tender over the snuffbox of the left wrist as well as the dorsal and palmar side of the wrist. She cannot range it at all but can make a fist. Normal neurovascular function in the hand.) - Neuro Neuro: Alert and oriented X 3, Normal speech Results - Vitals Vitals: Vital Signs - 24 hr 12/24/19 19:26 Temperature 36.6 C Heart Rate 72 Respiratory 16 Rate Blood Pressure 137/80 H O2 Saturation 99 Oxygen O2 Source Room air - Rads (name of study) X-rays of the left wrist and elbow Radiology: EMP read contemporaneously (Mildly displaced and impacted left distal radius fracture, no obvious elbow fracture.) Procedures - Splint (location) LUE Splint applied by: Tech Type of splint: Fiberglass, Short arm, Volar cock up Other: Patient tolerated well, No complications, Neurovascular intact PD MEDICAL DECISION MAKING - ED course ED course: 54-year-old woman with isolated left arm injury, distal radius fracture. No other abnormal acute findings on the x-rays. Placed in a splint. She has a hand and wrist specialist that she plans to follow-up with. Departure - Departure Disposition: 01 Home, Self Care Clinical Impression: Fracture of left distal radius Qualifiers: Encounter type: initial encounter Fracture type: closed Fracture morphology: other fracture Qualified Code(s): S52.592A - Other fractures of lower end of left radius, initial encounter for closed fracture Sprain of left elbow Qualifiers: Encounter type: initial encounter Qualified Code(s): S53.402A - Unspecified sprain of left elbow, initial encounter Condition: Good Record reviewed to determine appropriate education?: Yes Instructions: ED Fx Forearm Radius Ulna No Redu Requ Follow-Up: [facility] [Provider Group] Prescriptions: Hydrocodone/Acetaminophen [Hydrocodone-Acetamin 5-325 mg] 1 - 2 tab PO Q6H PRN #15 tablet PRN Reason: Pain Comments: Keep the splint on and dry, follow-up with your hand and wrist specialist in [place] within the week, call tomorrow for an appointment. Return for new or worsening symptoms. When you go to see your surgeon make sure to take the copy of the x-rays with you. Return for new or worsening symptoms. Do not drink or drive while taking narcotic pain medication. Note that many narcotic pain relievers also contain Tylenol/acetaminophen. Please ensure that your total dose of acetaminophen from all sources does not exceed 3 g (3000 mg) per day. You may get constipated while on this medication. Take a stool softener such as Colace twice a day while you are on it. Also add an qokj-czu-gysozuc laxative such as senna or MiraLAX on any day that you do not have a bowel movement. If you received a narcotic pain medication or sedative while in the emergency department, do not drive for the next 24 hours.
--- NOTE | 2019-12-24 20:16 | XRAY Report ---
PROCEDURE: Wrist 4 View LT INDICATIONS: WRIST INJ TECHNIQUE: 4 views of the wrist were acquired. COMPARISON: None FINDINGS: Bones: There is a bony step-off involving the distal radius adjacent to the distal radioulnar joint. ORIF of the distal ulna. No suspicious bony lesions. Scaphoid view: Negative Soft tissues: No suspicious soft tissue calcifications. IMPRESSION: Findings suspicious for mildly displaced distal radial fracture. Reviewed by: Brenda Skaggs MD on 12/24/2019 8:15 PM [facility] Approved by: Brenda Skaggs MD on 12/24/2019 8:15 PM [facility] Station ID: [id number]
--- NOTE | 2019-12-24 20:16 | XRAY Report ---
PROCEDURE: Elbow 3 View LT INDICATIONS: ARM INJ TECHNIQUE: 3 views of the elbow were acquired. COMPARISON: None FINDINGS: Bones: No fractures or dislocations. ORIF of the proximal ulna No suspicious bony lesions. Soft tissues: No elbow joint effusion. No suspicious soft tissue calcifications. IMPRESSION: No acute fracture. No osseous lesion. If symptoms and/or clinical suspicion for pathology continue, f urther assessment with repeat plain films, or advanced imaging (e.g., CT, MRI, or bone scan) is recom mended for further assessment. Reviewed by: Brenda Skaggs MD on 12/24/2019 8:15 PM PST Approved by: Brenda Skaggs MD on 12/24/2019 8:15 PM PST Station ID: [id number]
[2019-12-24] MEDS ORDERED: HYDROcod/ACET 5/325 Prepack 4 PO STA (20:25)
[2019-12-24 20:53] VITALS: BP 144/86
== END 2019-12-24 20:54 | disposition home or self-care (01) ==
LOC: ED 19:17
DX: S52.502A Unspecified fracture of the lower end of left radius, initial encounter for closed fracture (principal); S53.402A Unspecified sprain of left elbow, initial encounter; W01.0XXA Fall on same level from slipping, tripping and stumbling without subsequent striking against object, initial encounter; Y92.009 Unspecified place in unspecified non-institutional (private) residence as the place of occurrence of the external cause; Z96.7 Presence of other bone and tendon implants; E11.9 Type 2 diabetes mellitus without complications
CPT/HCPCS: 29125; 73080; 73110; 99284; A9270

== ENCOUNTER 2021-03-24 15:34 | Outpatient (CLI) | payer BC ==
[2021-03-24 20:10] LABS: BASOPHILS # (AUTO) 0.1 10^3/uL (0.0-0.1); BASOPHILS % (AUTO) 0.9 %; EOSINOPHILS # (AUTO) 0.5 10^3/uL (0.0-0.7); EOSINOPHILS % (AUTO) 6.4 %; HCT - HEMATOCRIT 37.3 % (37.0-47.0); LYMPHOCYTES # (AUTO) 2.4 10^3/uL (1.5-3.5); LYMPHOCYTES % (AUTO) 32.3 %; MEAN CORPUSCULAR HEMOGLOBIN 28.3 pg (27.0-31.0); MEAN CORPUSCULAR HGB CONC 32.2 g/dL (32.0-36.0); MEAN PLATELET VOLUME 11.1 fL (7.9-10.8); MONOCYTES # (AUTO) 0.5 10^3/uL (0.0-1.0); MONOCYTES % (AUTO) 6.8 %; NEUTROPHILS % (AUTO) 53.2 %; PLT - PLATELET COUNT 303 10^3/uL (130-450); RED BLOOD COUNT 4.24 10^6/uL (4.20-5.40); RED CELL DISTRIBUTION WIDTH 13.1 % (12.0-15.0); WHITE BLOOD COUNT 7.5 x10^3/uL (4.8-10.8)
[2021-03-24 20:27] LABS: ALBUMIN 3.9 g/dL (3.2-5.5); ALBUMIN/GLOBULIN RATIO 1.3 (1.0-2.2); ALKALINE PHOSPHATASE 63 IU/L (42-121); ALT ALANINE AMINOTRANSFERASE 17 IU/L (10-60); AST ASPARTATE AMINOTRANSFERASE 20 IU/L (10-42); BILIRUBIN,TOTAL 0.7 mg/dL (0.2-1.0); BUN - BLOOD UREA NITROGEN 12 mg/dL (6-20); CALCIUM 8.5 mg/dL (8.5-10.3); CARBON DIOXIDE - CO2 27 mmol/L (21-32); CHLORIDE 105 mmol/L (101-111); CHOL/HDL RATIO 3.1 (<4.4); CHOLESTEROL 123 mg/dL; CREATININE 0.6 mg/dL (0.4-1.0); GFR - MDRD 103 (>89); GLUCOSE 99 mg/dL (70-100); HDL CHOLESTEROL 40 mg/dL; LDL CHOLESTEROL,CALCULATED 69 mg/dL; LDL/HDL RATIO 1.7 (<4.4); POTASSIUM 3.2 mmol/L (3.5-5.0); SODIUM 140 mmol/L (135-145); TOTAL PROTEIN 6.8 g/dL (6.7-8.2); TRIGLYCERIDES 71 mg/dL; VLDL CHOLESTEROL 14 mg/dL
[2021-03-24 20:37] LABS: THYROID STIMULATING HORMONE 2.41 uIU/mL (0.34-5.60)
[2021-03-24 21:41] LABS: ESTIMATED AVERAGE GLUCOSE 85 mg/dL (70-100); HEMOGLOBIN A1c% 4.6 % (4.27-6.07)
== END 2021-03-24 15:35 | disposition home or self-care (01) ==
LOC: LAB.S 15:34
PROVIDERS: ATTEND Registered Nurse
DX: R73.9 Hyperglycemia, unspecified (principal); Z79.899 Other long term (current) drug therapy; R03.0 Elevated blood-pressure reading, without diagnosis of hypertension; Z82.49 Family history of ischemic heart disease and other diseases of the circulatory system; Z87.19 Personal history of other diseases of the digestive system
CPT/HCPCS: 36415; 80053; 80061; 82306; 82607; 83036; 83721; 84443; 85025; 85379

== ENCOUNTER 2022-10-02 17:21 | Emergency (ER) | payer BC, OTHER ==
[2022-10-02] MEDS ORDERED: ONDANSETRON 4 MG/2 ML VIAL IM STA (17:32)
[2022-10-02] MEDS ORDERED: HYDROmorphone 1 MG/ML CARPUJECT IM STA (17:32)
--- NOTE | 2022-10-02 17:36 | ED Physician Documentation ---
PD HPI MAJOR TRAUMA - Stated complaint Stated Complaint: R ARM INJ - Chief complaint Chief Complaint: Trauma Ext - History obtained from History obtained from: Patient - Additional information Additional information: Slip and fall in [place] injuring her right wrist. Also has scrapes on both knees. She has an abrasion on the forehead but has no head injury that she feels like is serious and no headache. The right wrist is very painful though. 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 HEENT: Other - Present Medications Home Medications: Ambulatory Orders Medication Instructions Recorded Confirmed Hydrocodone/Acetaminophen 1 - 2 tab PO Q6H PRN #15 tablet 12/24/19 [Hydrocodone-Acetamin 5-325 mg] Oxycodone HCl/Acetaminophen 1 - 2 each PO Q6H PRN #14 tablet 10/02/22 [Percocet 5-325 mg Tablet] - Allergies Allergies/Adverse Reactions: Allergies Allergy/AdvReac Type Severity Reaction Status Date / Time lanolin Allergy Rash Verified 10/02/22 17:23 - Social History Does the pt smoke?: No Smoking Status: Never smoker Does the pt drink ETOH?: Yes Does the pt have substance abuse?: No - Immunizations Immunizations are current?: Yes - POLST Patient has POLST: No PD ED PE NORMAL - Vitals Vital signs reviewed: Yes - General General: Alert and oriented X 3, No acute distress - HEENT HEENT: PERRL, EOMI - Neck Neck: Supple, no meningeal sign, No bony TTP - Cardiac Cardiac: RRR, No murmur - Respiratory Respiratory: No respiratory distress, Clear bilaterally - Extremities Extremities: Other (Abrasions on both knees, nontender with full range of motion. She is exquisitely tender to the distal forearm of the right wrist with potentially mild deformity and cannot range it at all with normal neurovascular function of the hand.) - Neuro Neuro: Alert and oriented X 3, Normal speech Eye Opening: Spontaneous Motor: Obeys Commands Verbal: Oriented GCS Score: 15 Results - Vitals Vitals: Vital Signs - 24 hr 10/02/22 17:23 Temperature 36.5 C Heart Rate 66 Respiratory 24 Rate Blood Pressure 125/70 O2 Saturation 96 Oxygen O2 Source Room air - Rads (name of study) 2 view right forearm x-ray Relevant Findings:: Final report received, EMP independent interpretation of test Procedures - Splint (location) - Minor RUE Splint applied by: Physician, Tech Type of splint: Long arm, Sugar tong, Other (Placed into slight palmar angulation to help with the angulation of the fracture.) Other: Patient tolerated well, No complications, Neurovascular intact, Good alignment, Sling provided Departure - Departure Disposition: Home, Self Care Clinical Impression: Colles' fracture of right radius Qualifiers: Encounter type: initial encounter Fracture type: closed Qualified Code(s): S52.531A - Colles' fracture of right radius, initial encounter for closed fracture Condition: Good Record reviewed to determine appropriate education?: Yes Instructions: ED Fx Forearm Radius Ulna Redu Requ Follow-Up: Orthopedic Care [Provider Group] Prescriptions: Oxycodone HCl/Acetaminophen [Percocet 5-325 mg Tablet] 1 - 2 each PO Q6H PRN #14 tablet PRN Reason: pain Comments: Keep the splint on and dry, do not remove it, do not get wet. Call the orthopedics office on Tuesday, for an appointment next week. Sent your prescription electronically to [facility] in [place]. I am prescribing a short course of narcotic pain medication for you. These are potentially dangerous and addictive medications that should be used carefully. These medications may constipate you. Take an gamk-arg-neleleu stool softener (docusate) twice daily with plenty of water while taking these medications. If you go 24 hours without a bowel movement, take krab-loj-oigjzmn miralax, per package instructions. Do not drink or drive while taking these medications. If you received narcotic or sedating medications while in the emergency department, do not drive for 24 hours. Store this medication in a safe, secure place and out of reach of children. It is a violation of federal law to give or sell this medication to another person or to use in a manner other than prescribed. The ED will not refill narcotic prescriptions, including prescriptions lost or stolen. To dispose of unwanted medications: 1. [employer] [facility] provides a drop box for medication in pill form only (no liquids) 8:00 am to 4:30 p.m. Tuesday-Tuesday in the lobby of the [facility], [address] Empty pills into ziplock bag before disposal. Call [phone] for information. 2.[employer] is a free service available to all [facility] residents. Go to [email or web address] Note that many narcotic pain relievers also contain Tylenol/acetaminophen. Please ensure that your total dose of acetaminophen from all sources does not exceed 3 g (3000 mg) per day. Forms: Activity restrictions
--- NOTE | 2022-10-02 17:57 | XRAY Report ---
PROCEDURE: Forearm RT INDICATIONS: ARM INJ TECHNIQUE: 2 views of the forearm were acquired. COMPARISON: None FINDINGS: Bones: Comminuted distal metaphyseal radial fracture with slight dorsal angulation. Comminuted distal ulnar fracture with slight dorsal angulation. Soft tissues: No suspicious soft tissue calcifications or masses. IMPRESSION: Distal radial and ulnar fractures Reviewed by: Bhargav Yeboah MD on 10/02/2022 4:55 PM AKDT Approved by: Bhargav Yeboah MD on 10/02/2022 4:55 PM AKDT Station ID: [id number]
[2022-10-02] MEDS ORDERED: oxyCODONE 5 MG TABLET PO STA (18:11)
[2022-10-02] MEDS ORDERED: IBUPROFEN 800 MG TABLET PO STA (18:11)
[2022-10-02] MEDS ORDERED: CYCLOBENZAPRINE 10 MG Prepack 2 PO STA (18:44)
[2022-10-02 19:06] VITALS: BP 122/68; O2SAT 98
== END 2022-10-02 18:59 | disposition home or self-care (01) ==
LOC: ED 17:21
DX: S52.531A Colles' fracture of right radius, initial encounter for closed fracture (principal); W19.XXXA Unspecified fall, initial encounter; E11.9 Type 2 diabetes mellitus without complications
CPT/HCPCS: 29125; 73090; 96372; 99283; A9270; J1170

== ENCOUNTER 2022-10-06 08:15 | Outpatient (CLI) | payer OTHER ==
--- NOTE | 2022-10-06 15:02 | XRAY Report ---
PROCEDURE: Wrist 3 View RT INDICATIONS: RIGHT WRIST FRACTURE TECHNIQUE: 3 views of the wrist were acquired. COMPARISON: X-ray right forearm, 10/02/2022. FINDINGS: Bones: There is a comminuted radial metaphyseal fracture with impaction and angulation. Suspect non displaced fracture at the base of the ulnar styloid. Alignment is unchanged. No suspicious bony lesio ns. Soft tissues: No suspicious soft tissue calcifications or masses. IMPRESSION: Stable appearance of distal radial and ulnar fractures. Reviewed by: Tyra Fletcher MD on 10/06/2022 3:01 PM PDT Approved by: Tyra Fletcher MD on 10/06/2022 3:01 PM PDT Station ID: [id number]
--- NOTE | 2022-10-06 15:25 | XRAY Report ---
PROCEDURE: Elbow 3 View RT INDICATIONS: RIGHT ELBOW PAIN TECHNIQUE: 4 views of the elbow were acquired. COMPARISON: X-ray right forearm, 10/02/2022. FINDINGS: Bones: The elbow is in the cast. Bone details are obscured. No fractures or dislocations. No suspic ious bony lesions. Soft tissues: No effusion. No suspicious soft tissue calcifications or masses. IMPRESSION: The elbow is in the cast. Bone details are obscured. No definitive fractures. If clinical symptoms pe rsist, consider a follow-up exam after removing the cast. Reviewed by: Tyra Fletcher MD on 10/06/2022 3:24 PM PDT Approved by: Tyra Fletcher MD on 10/06/2022 3:24 PM PDT Station ID: [id number]
== END 2022-10-06 23:59 | disposition home or self-care (01) ==
LOC: DI.WOS 08:15
PROVIDERS: ATTEND Orthopaedic Surgery
DX: S52.351D Displaced comminuted fracture of shaft of radius, right arm, subsequent encounter for closed fracture with routine healing (principal); S52.601D Unspecified fracture of lower end of right ulna, subsequent encounter for closed fracture with routine healing; M25.521 Pain in right elbow

== ENCOUNTER 2022-10-11 12:04 | Day surgery (SDC) | payer OTHER ==
[~2022-10-11 12:04] MED LIST: BUPIVACAINE 0.25% PF 30 ML VIAL ONE
[2022-10-11] MEDS ORDERED: LACTATED RINGERS 1,000 ML IV ONE ×2 (12:05→13:50)
--- NOTE | 2022-10-11 12:29 | ANESTHESIA ---
Pre-Anesthesia VS, & Labs - Diagnosis displaced right distal ulnar and radius fractures - Procedure closed reduction, percutaneuous pinning right distal radius fracture Height: 5 ft 5 in Weight (kg): 96 kg Body Mass Index: 35.2 BMI Classification: Obese - NPO >8 hours - Is Patient ?: No Home Medications and Allergies Home Medications: Ambulatory Orders Acetaminophen [Tylenol] 650 mg PO Q6H PRN 10/06/22 Cholecalciferol (Vitamin D3) [Vitamin D3] 125 mcg PO DAILY 10/06/22 Docusate Sodium 100Mg Capsule [Colace 100Mg Capsule] 100 mg PO DAILY 10/06/22 Ibuprofen [Motrin] 600 mg PO Q6H PRN 10/06/22 Multivitamin 1 each PO DAILY 10/06/22 Acetaminophen [Tylenol] 650 mg PO Q6H PRN 10/06/22 Cholecalciferol (Vitamin D3) [Vitamin D3] 125 mcg PO DAILY 10/06/22 Docusate Sodium 100Mg Capsule [Colace 100Mg Capsule] 100 mg PO DAILY 10/06/22 Ibuprofen [Motrin] 600 mg PO Q6H PRN 10/06/22 Multivitamin 1 each PO DAILY 10/06/22 Allergies/Adverse Reactions: Allergies Allergy/AdvReac Type Severity Reaction Status Date / Time lanolin Allergy Rash Verified 10/08/22 12:53 Anes History & Medical History - Anesthetic History Anesthesia Complications: reports: No previous complications - Medical History Cardiovascular: reports: None Pulmonary: reports: Pneumonia, Other Gastrointestinal: reports: Hemorrhoids Urinary: reports: None Neuro: reports: None Musculoskeletal: reports: None Endocrine/Autoimmune: reports: Type 2 diabetes Blood Disorders: reports: None Skin: reports: None Smoking Status: Never smoker - Surgical History General: reports: Gastric surgery, Colonoscopy Eyes Ears Nose Throat (EENT): reports: Other Gynecologic: reports: section Orthopedic: reports: Spine surgery, Other Exam General: Alert, Oriented x3 Dental: WNL Mouth Opening: Greater than 4 Fingerbreadths Neck Mobility: Limited Mallampati classification: II Thyromental Distance: greater than 6 cm Respiratory: Lungs clear Cardiovascular: Regular rate Plan Anesthesia Type: Total IV, Supraclavicular Block Consent for Procedure(s) Verified and Reviewed: Yes Code Status: Attempt Resuscitation ASA classification: 2-Mild systemic disease Is this case an emergency?: No
[2022-10-11] MEDS ORDERED: PROPOFOL 200 MG/20 ML VIAL IVP ONE (12:30)
[2022-10-11] MEDS ORDERED: fentaNYL 100 MCG/2 ML VIAL ONE (12:31)
[2022-10-11] MEDS ORDERED: MIDAZOLAM 2 MG/2 ML VIAL ONE (12:31)
[2022-10-11] MEDS ORDERED: ceFAZolin 2 GM VIAL ONE (12:33)
[2022-10-11] MEDS ORDERED: ACETAMINOPHEN 500 MG TABLET PO ONE (12:33)
[2022-10-11] MEDS ORDERED: CELECOXIB 100 MG CAPSULE PO ONE (12:33)
[2022-10-11] MEDS ORDERED: DEXAMETHASONE 4 MG/ML VIAL ONE (12:33)
[2022-10-11] MEDS ORDERED: LIDOCAINE-PF 2% 10 ML AMP SUBQ ONE (12:38)
[2022-10-11] MEDS ORDERED: ROPIVACAINE 0.5% PF 20 ML VIAL ONE (12:38)
[2022-10-11] MEDS ORDERED: PROPOFOL 500 MG/50 ML 500 MG/50 ML VIAL ONE (13:24)
--- NOTE | 2022-10-11 13:52 | OPERATIVE REPORT ---
Operative Report - General Procedure Date: 10/11/22 Planned Procedure: Closed reduction right distal radius with percutaneous pinning Pre-Op Diagnosis: Displaced Colles' fracture right wrist Procedure Performed: Closed reduction right distal radius with percutaneous K wire fixation Post Op Diagnosis: Same as preoperative diagnosis - Procedure Note Primary Surgeon: Fredy Genao MD Anesthesia Provider: Kelly Good CRNA Anesthesia Technique: Moderate sedation, Regional block Estimated Blood Loss (mL): 0 Indications: This is a relatively active 56-year-old woman with a history of fall and displaced distal radius fracture right wrist. 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 She has localized symptoms to the right wrist with tenderness and swelling to distal radius, decreased wrist motion. Her x-ray showed a displaced extra-articular distal radius fracture right wrist treatment options discussed prior to surgery, informed consent obtained Findings: Displaced distal radius fracture, extra-articular that aligned With closed reduction Complications: none - Other Other Information/Narrative: The patient was brought to the operating room and was placed in a supine position with the right arm on a arm extension table. He received a regional block with supplemental sedation. The right upper extremity was prepped and draped in a sterile manner in the usual fashion. The C-arm image intensifier was utilized and covered with a sterile drape. A timeout procedure was performed by the entire operating room team and all were in agreement. Finger traps were applied to all 5 fingers and a traction bow as well. Longitudinal traction was applied, direct manipulation of the fracture site over a sterile bump. The C-arm image intensifier showed good alignment and a percutaneous pinning was performed with 0.062 K wires. The bare area of the radial styloid was engaged and pin was inserted from the styloid across the fracture to achieve bicortical fixation. An additional K wire from the radial styloid was also inserted to provide 2 bicortical K wires from the radial styloid. 1 additional K wire was inserted from the ulnar corner of the distal radius distally and this was then driven from distal to proximal and ulnar to radial. Biplanar and oblique imaging was obtained and there was good alignment of the fixation and fracture. The K wires were cut external to skin and covered with sterile balls. A well-padded short arm fiberglass splint was applied with gauze padding around the K wires. The patient tolerated the procedure well. No tourniquet was utilized.
--- NOTE | 2022-10-11 14:00 | ANESTHESIA POST OP EVALUATION ---
Anesthesia Post Eval - Post Anesthesia Eval Vitals: Last Vital Signs Temp 36.3 C L 10/11/22 13:50 Pulse 65 10/11/22 13:50 Resp 16 10/11/22 13:50 BP 136/80 H 10/11/22 13:50 Pulse Ox 94 10/11/22 13:50 O2 Flow Rate CV Function Including HR & BP: Stable Pain Control: Satisfactory Nausea & Vomiting: Negative Mental Status: Baseline Respiratory Status: Airway Patent Hydration Status: Satisfactory Anesthesia Complications: None
[2022-10-11] MEDS ORDERED: oxyCODONE 5 MG TABLET PO PRN (14:12)
[2022-10-11] MEDS ORDERED: IBUPROFEN 600 MG TABLET PO PRN (14:14)
[2022-10-11] MEDS ORDERED: ACETAMINOPHEN 325 MG TABLET PO PRN (14:14)
[2022-10-11] MEDS ORDERED: oxyCODONE/ACET 5/325 Prepack 4 PO PRN (14:14)
[2022-10-11 14:34] VITALS: BP 151/86; O2SAT 97
--- NOTE | 2022-10-11 15:35 | ANESTHESIA POST OP EVALUATION ---
Anesthesia Post Eval - Post Anesthesia Eval Vitals: Last Vital Signs Temp 36.3 C L 10/11/22 13:50 Pulse 56 L 10/11/22 14:19 Resp 16 10/11/22 14:19 BP 151/86 H 10/11/22 14:19 Pulse Ox 97 10/11/22 14:19 O2 Flow Rate CV Function Including HR & BP: Stable Pain Control: Satisfactory Nausea & Vomiting: Negative Mental Status: Baseline Respiratory Status: Airway Patent Hydration Status: Satisfactory Anesthesia Complications: None
[2022-10-12] MEDS ORDERED: CHOLECALCIFEROL 5,000 UNIT CAPSULE PO SCH (09:00)
--- NOTE | 2022-10-12 19:07 | XRAY Report ---
PROCEDURE: OR C-Arm Procedure INDICATIONS: SURGERY FLUORO TIME: 0:08 MIN TECHNIQUE: Fluoroscopic guidance utilized for external pinning of the right distal radius. COMPARISON: None. FINDINGS: Fluoroscopic guidance utilized for external pinning of the right distal radius IMPRESSION: Fluoroscopic guidance. Reviewed by: Leo Suárez on 10/12/2022 7:06 PM PDT Approved by: Leo Suárez on 10/12/2022 7:06 PM PDT Station ID: [id number]
== END 2022-10-11 12:05 | disposition home or self-care (01) ==
LOC: SDS 12:04
PROVIDERS: ATTEND Orthopaedic Surgery
DX: S52.531A Colles' fracture of right radius, initial encounter for closed fracture (principal); W01.0XXA Fall on same level from slipping, tripping and stumbling without subsequent striking against object, initial encounter; J45.909 Unspecified asthma, uncomplicated; E11.9 Type 2 diabetes mellitus without complications; I10 Essential (primary) hypertension
CPT/HCPCS: 25606; A9270; J2795; J7120

== ENCOUNTER 2022-11-29 08:00 | Outpatient (CLI) | payer OTHER ==
--- NOTE | 2022-11-29 14:30 | XRAY Report ---
PROCEDURE: Wrist 3 View RT INDICATIONS: RIGHT WRIST FRACTURE TECHNIQUE: 3 views of the wrist were acquired. 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 Distal radius and ulnar styloid fractures demonstrate continued healing with no interval displacement.. Soft tissues: No suspicious soft tissue calcifications or masses. IMPRESSION: 1. Healing distal radius and ulnar styloid fractures. 2. Disuse osteopenia. Reviewed by: Galo Colmenares on 11/29/2022 2:28 PM PDT Approved by: Galo Colmenares on 11/29/2022 2:28 PM PDT Station ID: [id number]
== END 2022-11-29 23:59 | disposition home or self-care (01) ==
LOC: DI.WOS 08:00
PROVIDERS: ATTEND Orthopaedic Surgery
DX: S52.531D Colles' fracture of right radius, subsequent encounter for closed fracture with routine healing (principal); M85.831 Other specified disorders of bone density and structure, right forearm

== ENCOUNTER 2022-12-28 08:00 | Outpatient (CLI) | payer OTHER ==
--- NOTE | 2022-12-28 20:08 | XRAY Report ---
PROCEDURE: Wrist 3 View RT INDICATIONS: RIGHT WRIST FRACTURE TECHNIQUE: 3 views of the wrist were acquired. COMPARISON: Right wrist radiograph on November 29, 2022. FINDINGS: Bones: Transverse, extra-articular fracture of the radial metaphysis with slight impaction appears s imilar to the prior exam. Nondisplaced ulnar styloid fracture appears similar to the prior exam. Stab le alignment. No new fracture. Diffuse osseous demineralization. No suspicious bony lesions. Soft tissues: No suspicious soft tissue calcifications or masses. Mild soft tissue swelling about th e wrist. IMPRESSION: Similar appearance of distal radius and ulnar fractures. No significant interval osseous healing. Sta ble alignment. Reviewed by: Magdy Muhammad MD on 12/28/2022 8:06 PM PST Approved by: Magdy Muhammad MD on 12/28/2022 8:06 PM PST Station ID: [id number]
== END 2022-12-28 23:59 | disposition home or self-care (01) ==
LOC: DI.WOS 08:00
PROVIDERS: ATTEND Physician Assistant Surgical
DX: S52.531D Colles' fracture of right radius, subsequent encounter for closed fracture with routine healing (principal)